=== PATIENT | female | born 1980 | race Caucasian/White ===

== ENCOUNTER → 2024-10-31 15:40 | Outpatient (CLI) | payer OTHER, SELFPAY | PROVIDERS: PCP Family Medicine; Referring Provider Internal Medicine Critical Care Medicine; Visit Provider Internal Medicine Critical Care Medicine | DX: R05.3 Chronic cough (principal); E88.01 Alpha-1-antitrypsin deficiency | CPT/HCPCS: 94060; 94726; 94729 ==